=== PATIENT | male | born 1980 | race Caucasian/White ===

== ENCOUNTER → 2023-02-26 09:16 | Outpatient (CLI) | payer OTHER, SELFPAY ==
--- NOTE | ~2023-02-26 | MR_ITS ---
MRI of the lumbar spine Clinical History: Radiculopathy Technique: Axial T2-weighted images, and sagittal T1-weighted, T2-weighted, and and T2 fat-sat images were acquired. Findings: There is no fracture or subluxation of the lumbar spine. Vertebral bodies maintain normal h eight and alignment. No bone marrow signal abnormality seen. At L1-L2 and L2-L3, there is mild to moderate facet arthropathy. No disc bulge or herniation at these levels. No spinal canal stenosis or neural foraminal narrowing. At L3-L4, there is small annular fissure with mild disc bulge. There is moderate facet arthropathy. T here is minimal central canal stenosis, without definite neural foraminal narrowing. At L4-L5, there is diffuse disc bulge/protrusion with severe facet arthropathy. These factors result in severe spinal canal stenosis/thecal sac compression, as well as severe bilateral neural foraminal narrowing. At L5-S1, there is mild diffuse disc bulge and moderate to advanced facet arthropathy. No central can al stenosis. There is mild bilateral neural foraminal narrowing. Paravertebral soft tissues are unremarkable. Impression: Advanced degenerative spondylosis at L4-L5, with severe central canal stenosis/thecal sac compression and bilateral neural foraminal narrowing, as detailed above. [id number] degenerative spondylitic changes at L3-L4 and L5-S1, as detailed above. Reviewed, dictated and finalized at [facility]. Impression: Advanced degenerative spondylosis at L4-L5, with severe central canal stenosis/ thecal sac compression and bilateral neural foraminal narrowing, as detailed ab ove. [id number] degenerative spondylitic changes at L3-L4 and L5-S1, as detail ed above.
== END ==
PROVIDERS: PCP Nurse Practitioner Family; Visit Provider Nurse Practitioner Family
DX: M47.26 Other spondylosis with radiculopathy, lumbar region (principal)
CPT/HCPCS: 72148